=== PATIENT | female | born 1960 | race Caucasian/White ===

== ENCOUNTER → 2017-12-27 | Outpatient (CLI) | payer MEDICAID ==
--- NOTE | 2017-12-27 16:22 | XR ---
EXAMINATION TYPE: XR lumbar spine 2 or 3V DATE OF EXAM: 12/27/2017 COMPARISON: NONE HISTORY: 57 year-old female chronic low back pain after injury in August, sciatica TECHNIQUE: 3 views FINDINGS: Vertebral body heights are preserved. Hypertrophic facet arthropathy lower lumbar spine with grade 1 retrolisthesis at L4-L5. Variable mild disc interspace narrowing. IMPRESSION: No vertebral compression collapse. Hypertrophic facet arthropathy with grade 1 retrolisthesis at L4-L 5.
== END | disposition home or self-care (01) ==
LOC: RADXRMAIN 15:39
PROVIDERS: ATTEND Family Medicine
DX: M43.16 Spondylolisthesis, lumbar region (principal); M46.96 Unspecified inflammatory spondylopathy, lumbar region
CPT/HCPCS: 72100

== ENCOUNTER → 2018-06-15 | Outpatient (CLI) | payer MEDICAID ==
--- NOTE | 2018-06-16 08:26 | US ---
EXAMINATION TYPE: US thyroid st tissue head/neck DATE OF EXAM: 06/15/2018 COMPARISON: NONE CLINICAL HISTORY: E03.9 Hypothyroidism,E07.9 Disorder of thyroid.; on Naturthroid med per patient; co mplains of neck fullness GLAND SIZE: Right Lobe: 5.2 x 1.8 x 1.8 cm Overall Parenchyma: homogenous Left Lobe: 5.4 x 1.8 x 1.4 cm Overall Parenchyma: homogeneous Isthmus Thickness: 0.1 cm NODULES RIGHT: # of nodules measured on right: 0 LEFT: # of nodules measured on left: 0 ISTHMUS: # of nodules measured in the isthmus: 0 Bilateral neck scanned, no evidence of lymphadenopathy. IMPRESSION: Thyroid enlargement without solid or cystic nodule.
== END | disposition home or self-care (01) ==
LOC: RADUSWWP 15:46
PROVIDERS: ATTEND Family Medicine
DX: E04.9 Nontoxic goiter, unspecified (principal); E03.9 Hypothyroidism, unspecified
CPT/HCPCS: 76536

== ENCOUNTER → 2018-09-19 | Outpatient (CLI) | payer MEDICAID ==
--- NOTE | 2018-09-19 22:54 | MR ---
EXAMINATION TYPE: MR lumbar spine wo con DATE OF EXAM: 09/19/2018 COMPARISON: Lumbar spine x-ray December 27, 2017. HISTORY: RT side low back pain into pelvis TECHNIQUE: Multiplanar, multisequence imaging of the lumbar spine is performed without IV contrast. FINDINGS: Sagittal images of the lumbar spine show vertebral body height to appear satisfactory. Ther e is slight grade 1 retrolisthesis of L3 on L4 and L4 on L5. Multilevel disc desiccation is present. There is moderate to advanced disc space narrowing L4-L5 level. No large posterior disc herniations a re seen on sagittal images. The conus medullaris is normal in position and signal ending mid L1 level . The bone marrow signal intensity is within normal limits. Mild multilevel anterior spurring is seen . Axial images and the T12-L1 level shows mild to moderate broad-based posterior disc protrusion mildly effacing the anterior thecal sac, bilateral neural foramina are patent. Axial images at L1-L2 and L2-L3 levels are felt within normal limits. Axial images at the L3-L4 level mild facet degenerative changes bilaterally with [id number] bro ad disc bulge mildly effacing anterior thecal sac, bilateral neural foramina are patent. Axial images at the L4-L5 level shows [id number] facet degenerative changes bilaterally. Spondy lolisthesis is seen. Spinal canal is preserved. There is asymmetric mild to moderate right-sided neur al foraminal narrowing due to spur disc complex. Left-sided neural foramina is mildly narrowed. Axial images at the L5-S1 level mild facet degenerative changes bilaterally. There is moderate broad disc bulge with spinal canal is preserved. There is asymmetric moderate left-sided neural foraminal n arrowing. Right-sided neural foramina shows mild narrowing but some encroachment along the anterior-i nferior right L5 nerve sagittal image 14 less prominent on axial images. No suspicious retroperitoneal findings are identified. IMPRESSION: Multilevel degenerative changes mid to lower lumbar spine as detailed above
== END ==
LOC: RADMRIMAIN 19:42
PROVIDERS: ATTEND Physician Assistant
DX: M48.061 Spinal stenosis, lumbar region without neurogenic claudication (principal); M99.73 Connective tissue and disc stenosis of intervertebral foramina of lumbar region; M43.16 Spondylolisthesis, lumbar region; M51.25 Other intervertebral disc displacement, thoracolumbar region; M47.817 Spondylosis without myelopathy or radiculopathy, lumbosacral region
CPT/HCPCS: 72148

== ENCOUNTER → 2018-12-01 | Outpatient (CLI) | payer MEDICAID ==
--- NOTE | 2018-12-02 16:35 | CT ---
EXAMINATION TYPE: CT abdomen pelvis w con DATE OF EXAM: 12/01/2018 COMPARISON: None INDICATION: Lower quadrant pain DLP: 10/25/2003 mGycm, Automated exposure control for dose reduction was used. CONTRAST: 100 mL of Isovue 300. Study performed with Oral Contrast TECHNIQUE: Axial images were obtained from above the diaphragm to the pubic rami in the axial plane a t 5 mm thick sections. Reconstructed images are reviewed on the computer in the coronal plane. FINDINGS: Limited CT sections are obtained the lung bases. The lung bases are clear. CT ABDOMEN: Liver: Normal Spleen: Normal Pancreas: Normal Adrenal glands: The adrenal glands are normal. Gallbladder: Normal Kidneys: No masses are evident. No hydronephrosis is present. No cysts are present. Delayed images were obtained through the kidneys, which remain unremarkable. Aorta: Minimal Vascular calcification is within the aorta. Inferior vena cava: Normal. CT PELVIS: Loops of bowel within the abdomen and pelvis are normal. There are loops of bowel which are incom pletely distended or lack oral contrast limiting their evaluation. Appendix: Normal as visualized. Urinary bladder: Normal. Genitourinary structures: Uterus appears normal. Adnexal regions are clear. Osseous structures: No suspicious lytic or sclerotic lesions. Degenerative changes are within the lum bar spine. Degenerative disc changes with loss of disc height are noted. IMPRESSIONS: 1. No suspicious acute changes. 2. Normal appendix
== END | disposition home or self-care (01) ==
LOC: RADCTMAIN 15:40
PROVIDERS: ATTEND Family Medicine
DX: R10.31 Right lower quadrant pain (principal)
CPT/HCPCS: 74177; Q9967

== ENCOUNTER → 2019-01-24 | Outpatient (CLI) | payer MEDICAID ==
--- NOTE | 2019-01-25 13:23 | MM ---
Reason for exam: screening (asymptomatic). Last mammogram was performed 2 years and 4 months ago. History: Patient is postmenopausal, history of other cancer, and had first child at age 32. Benign excisional biopsy of the left breast. Taking estrogen for 6 years. Taking progesterone for 10 years. Took unspecified hormones for 1 year beginning at age 45. Physical Findings: A clinical breast exam by your physician is recommended on an annual basis and results should be correlated with mammographic findings. MG 3D Screening Mammo W/Cad Bilateral CC and MLO view(s) were taken. Prior study comparison: September 29, 2016, left breast MG 3d diag mammo w/cad LT. March 09, 2016, bilateral MG 3d screening mammo w/cad. The breast tissue is heterogeneously dense. This may lower the sensitivity of mammography. Finding #1: Stable architectural distortion in the posterior position of the left breast consistent with known excision. Finding #2: There are typically benign round calcifications in the left breast. There is no discrete abnormality. ASSESSMENT: Benign, BI-RAD 2 RECOMMENDATION: Routine screening mammogram of both breasts in 1 year.
== END | disposition home or self-care (01) ==
LOC: RADMAMWWP 15:45
PROVIDERS: ATTEND Obstetrics & Gynecology
DX: Z12.31 Encounter for screening mammogram for malignant neoplasm of breast (principal)
CPT/HCPCS: 77063; 77067

== ENCOUNTER 2019-06-24 10:09 | Emergency (ER) | payer MEDICAID ==
[2019-06-24 10:21] VITALS: RESP 18; TEMP 98.5
[2019-06-24] MEDS ORDERED: KETOROLAC 30 MG/ML 1 ML VIAL IVP STA (10:40)
[2019-06-24] MEDS ORDERED: ONDANSETRON 4 MG/2 ML VIAL IVP STA (10:40)
[2019-06-24] MEDS ORDERED: SODIUM CHLORIDE 0.9% 1,000 ML IV STA (10:40)
--- NOTE | 2019-06-24 10:47 | ED ---
Abdominal Pain HPI - General Chief Complaint: Abdominal Pain Stated Complaint: back pain/nausea Time Seen by Provider: 06/24/19 10:22 Source: patient Mode of arrival: ambulatory Limitations: no limitations - History of Present Illness Initial Comments: Patient is a 58-year-old female presenting to the emergency Department with complaints of right flank pain 2 days. Patient states her pain started suddenly and she first thought she had pulled a muscle. Patient is very active and does yoga and spinning. Patient states the pain has been fairly consistent since the onset. Patient states yesterday the pain increased and she was vomiting. Patient did try some heat on the area and was able to sleep through the night but woke up this morning stating the pain was still there and still very intense. Patient denies history of kidney stones. Patient denies fever, chills, urinary complaints at this time. Patient denies chest pain, shortness of breath. Patient denies any other complaints at this time. Upon arrival to ER, vital signs stable, afebrile. - Related Data Previous Rx's Medication Instructions Recorded Cyclobenzaprine [Flexeril] 5 mg PO BID #10 tablet 06/24/19 Allergies Allergy/AdvReac Type Severity Reaction Status Date / Time No Known Allergies Allergy Verified 06/24/19 10:17 Review of Systems ROS Statement: Those systems with pertinent positive or pertinent negative responses have been documented in the HPI. ROS Other: All systems not noted in ROS Statement are negative. Past Medical History Additional Past Medical History / Comment(s): endometriosis History of Any Multi-Drug Resistant Organisms: None Reported Additional Past Surgical History / Comment(s): laparatomy Past Psychological History: No Psychological Hx Reported Smoking Status: Never smoker Past Alcohol Use History: Occasional Past Drug Use History: None Reported General Exam - General Exam Comments Initial Comments: GENERAL: Well-appearing, well-nourished and in no acute distress. HEAD: Atraumatic, normocephalic. EYES: Pupils equal round and reactive to light, extraocular movements intact, sclera anicteric, conjunctiva are normal. ENT: TMs normal, nares patent, oropharynx clear without exudates. Moist mucous m embranes. NECK: Normal range of motion, supple without lymphadenopathy or JVD. LUNGS: Breath sounds clear to auscultation bilaterally and equal. No wheezes rales or rhonchi. HEART: Regular rate and rhythm without murmurs, rubs or gallops. ABDOMEN: Tender to palpation on the right side, right flank area. Mild tenderness to palpation in the suprapubic and right lower quadrant. Soft, normoactive bowel sounds. No guarding, no rebound. No masses appreciated. : Deferred EXTREMITIES: Normal range of motion, no pitting or edema. No clubbing or cyanosis. NEUROLOGICAL: Cranial nerves II through XII grossly intact. Normal speech, normal gait. PSYCH: Normal mood, normal affect. SKIN: Warm, Dry, normal turgor, no rashes or lesions noted. Limitations: no limitations Course Vital Signs 06/24/19 06/24/19 10:14 13:54 Temperature 98.5 F Pulse Rate 79 65 Respiratory 18 18 Rate Blood Pressure 172/72 130/76 O2 Sat by Pulse 96 98 Oximetry Medical Decision Making - Medical Decision Making Patient is a 58-year-old female with complaints of right flank and right lower quadrant pain 2 days. Patient had associated vomiting yesterday. Patient denies fever, chills. She denies history of kidney stones. Vital signs stable upon arrival. Patient's exam reveals right side and right lower quadrant pain. CBC, CMP, lipase, and amylase, UA are all within normal limits. CT of the abdomen was obtained and shows no acute intra-abdominal process. No kidney stone present. There was a oval radiodensity in the terminal ileum likely a ca lcium deposit. Follow-up with PCP for another KUB x-ray is recommended. Patient understood these findings. This is likely muscle skeletal in nature. Patient will use heat and gentle stretching. Patient is stable for discharge at this time. Return parameters were discussed with the patient she verbalized understanding. Case discussed with Dr. Meyers. - Lab Data Result diagrams: 06/24/19 11:42 06/24/19 11:42 Lab Results 06/24/19 06/24/19 06/24/19 Range/Units 11:31 11:42 11:42 WBC 4.3 (3.8-10.6) k/uL RBC 4.58 (3.80-5.40) m/uL Hgb 14.2 (11.4-16.0) gm/dL Hct 41.7 (34.0-46.0) % MCV 91.0 (80.0-100.0) fL MCH 31.1 (25.0-35.0) pg MCHC 34.1 (31.0-37.0) g/dL RDW 15.0 (11.5-15.5) % Plt Count 194 (150-450) k/uL Neutrophils % 48 % Lymphocytes % 35 % Monocytes % 9 % Eosinophils % 3 % Basophils % 1 % Neutrophils # 2.1 (1.3-7.7) k/uL Lymphocytes # 1.5 (1.0-4.8) k/uL Monocytes # 0.4 (0-1.0) k/uL Eosinophils # 0.1 (0-0.7) k/uL Basophils # 0.0 (0-0.2) k/uL Sodium 141 (137-145) mmol/L Potassium 4.4 (3.5-5.1) mmol/L Chloride 107 (98-107) mmol/L Carbon Dioxide 26 (22-30) mmol/L Anion Gap 8 mmol/L BUN 12 (7-17) mg/dL Creatinine 0.63 (0.52-1.04) mg/dL Est GFR (CKD-EPI)AfAm >90 (>60 ml/min/1.73 sqM) Est GFR (CKD-EPI)NonAf >90 (>60 ml/min/1.73 sqM) Glucose 109 H (74-99) mg/dL Calcium 9.4 (8.4-10.2) mg/dL Total Bilirubin 0.7 (0.2-1.3) mg/dL AST 31 (14-36) U/L ALT 29 (9-52) U/L Alkaline Phosphatase 57 (38-126) U/L Total Protein 7.3 (6.3-8.2) g/dL Albumin 4.4 (3.5-5.0) g/dL Amylase 51 (30-110) U/L Lipase 104 (23-300) U/L Urine Color Colorless Urine Appearance Clear (Clear) Urine pH 7.5 (5.0-8.0) Ur Specific [place] 1.003 (1.001-1.035) Urine Protein Negative (Negative) Urine Glucose (UA) Negative (Negative) Urine Ketones Negative (Negative) Urine Blood Negative (Negative) Urine Nitrite Negative (Negative) Urine Bilirubin Negative (Negative) Urine Urobilinogen <2.0 (<2.0) mg/dL Ur Leukocyte Esterase Negative (Negative) Disposition Clinical Impression: Abdominal pain, Vomiting, Right flank pain Disposition: HOME SELF-CARE Condition: Stable Instructions (If sedation given, give patient instructions): Flank Pain (ED) Additional Instructions: Please return to the Emergency Department if symptoms worsen or any other concerns. Use heat and gentle stretching to the area. Continue with NSAIDs for pain relief and trial of muscle relaxer. Follow-up with Dr. Mccormick next week. Prescriptions: Cyclobenzaprine [Flexeril] 5 mg PO BID #10 tablet Is patient prescribed a controlled substance at d/c from ED?: No Referrals: Raymundo Mccormick MD [Primary Care Provider] - 1-2 days
[2019-06-24 11:45] LABS: Appearance,Urine Clear (Clear); Bilirubin,Urine Negative (Negative); Blood,Urine Negative (Negative); Color,Urine Colorless; Glucose,Urine (UA) Negative (Negative); Ketones,Urine Negative (Negative); Leukocyte Esterase,Urine Negative (Negative); Nitrite,Urine Negative (Negative); PH, Urine 7.5 (5.0-8.0); Protein,Urine Negative (Negative); Specific Gravity,Urine 1.003 (1.001-1.035); Urobilinogen,Urine <2.0 mg/dL (<2.0)
[2019-06-24 12:03] LABS: Basophils % (A) 1 %; Eosinophils # (A) 0.1 k/uL (0-0.7); Eosinophils % (A) 3 %; HCT 41.7 % (34.0-46.0); HGB 14.2 gm/dL (11.4-16.0); Lymphocytes # (A) 1.5 k/uL (1.0-4.8); Lymphocytes % (A) 35 %; MCH 31.1 pg (25.0-35.0); MCHC 34.1 g/dL (31.0-37.0); Mean Platelet Volume 7.1; Monocytes # (A) 0.4 k/uL (0-1.0); Monocytes % (A) 9 %; Neutrophils # (A) 2.1 k/uL (1.3-7.7); Neutrophils % (A) 48 %; Platelet Count 194 k/uL (150-450); RBC 4.58 m/uL (3.80-5.40); WBC 4.3 k/uL (3.8-10.6)
[2019-06-24 12:11] LABS: ALT 29 U/L (9-52); AST 31 U/L (14-36); African American GFR (CKD) >90 (>60 ml/min/1.73 sqM); Albumin 4.4 g/dL (3.5-5.0); Alkaline Phosphatase 57 U/L (38-126); Amylase 51 U/L (30-110); Anion Gap 8 mmol/L; Blood Urea Nitrogen 12 mg/dL (7-17); Calcium 9.4 mg/dL (8.4-10.2); Carbon Dioxide 26 mmol/L (22-30); Chloride 107 mmol/L (98-107); Glucose 109 mg/dL (74-99); Potassium 4.4 mmol/L (3.5-5.1); Sodium 141 mmol/L (137-145); Total Bilirubin 0.7 mg/dL (0.2-1.3); Total Protein 7.3 g/dL (6.3-8.2)
--- NOTE | 2019-06-24 12:31 | CT ---
EXAMINATION TYPE: CT abdomen pelvis wo con DATE OF EXAM: 06/24/2019 COMPARISON: CT abdomen/pelvis 12/01/2018 HISTORY: Right flank pain CT DLP: 687.9 mGycm Automated exposure control for dose reduction was used. TECHNIQUE: Helical acquisition of images was performed from the lung bases through the pelvis. No in travenous contrast was given. FINDINGS: Visceral evaluation is limited due to noncontrast technique. The liver, spleen, adrenal glands, and p ancreas are morphologically normal. No calcified gallstones. No renal or ureteral calculi. No hydronephrosis. Distended urinary bladder has a normal noncontrasted appearance. Uterus is present. No dilated bowel or free air. Trace amount of pelvic free fluid, not an unusual finding. Morphologica lly normal appendix. Ovoid radiodensity in the terminal ileum likely from ingested material. No suspicious adenopathy. Few aortic atherosclerotic plaques without aneurysm. Lower lumbar spine disc degeneration, greatest degree at L4-L5 characterized by disc height loss, vac uum disc phenomenon, and discogenic endplate change. Nonaggressive left iliac and right iliac sclerot ic bone lesions are stable. IMPRESSION: NO ACUTE INTRA-ABDOMINAL PROCESS. NO RENAL CALCULI OR HYDRONEPHROSIS.
[2019-06-24 13:55] VITALS: BP 130/76; PULSE 65
== END 2019-06-24 13:56 | disposition home or self-care (01) ==
LOC: EC 10:09
DX: R10.31 Right lower quadrant pain (principal); R11.10 Vomiting, unspecified
CPT/HCPCS: 36415; 80053; 82150; 83690; 85025; 81003; 74176; 99284; 96374; 96375; 96361 ×2; J2405; J1885

== ENCOUNTER → 2020-03-28 | Outpatient (CLI) | payer MEDICAID | END | disposition home or self-care (01) | LOC: LABWHC1 16:23 | PROVIDERS: ATTEND Surgery | DX: Z11.59 Encounter for screening for other viral diseases (principal) ==

== ENCOUNTER → 2020-03-31 | Outpatient (CLI) | payer MEDICAID ==
--- NOTE | 2020-04-01 13:06 | MR ---
EXAMINATION TYPE: MR shoulder RT wo con DATE OF EXAM: 03/31/2020 COMPARISON: None HISTORY: Chronic Pain in Right shoulder when laying on it or rotating it. No Know injury or Loss of R OM. TECHNIQUE: Multiplanar, multisequence imaging of the right shoulder is performed without contrast. FINDINGS: There is hypertrophic arthropathy of the AC joint with evidence of impingement. Mass effect on the supraspinatus tendon and muscle noted. Intrasubstance signal is seen within the distal margin of the infraspinatus tendon and supraspinatus tendons compatible with tendinosis with no through thickness tear or retraction. Trace amount of flui d in the subacromial bursa. Subscapularis tendon intact. Biceps tendon and tendon is intact. Within the intracapsular portion of the biceps courses there appe ars to be thickening and increased signal compatible with tendinosis. Biceps anchor intact. Bony labrum grossly intact for nonarthrogram technique. Glenohumeral ligaments intact. IMPRESSION: 1. Impingement with tendinosis of the supraspinatus and infraspinatus tendons but no evidence of thro ugh thickness tear or retraction. 2. bicipital tendinosis.
== END | disposition home or self-care (01) ==
LOC: RADMRIMAIN 15:32
PROVIDERS: ATTEND Orthopaedic Surgery
DX: M67.813 Other specified disorders of tendon, right shoulder (principal); M75.21 Bicipital tendinitis, right shoulder

== ENCOUNTER 2020-04-01 09:02 | Day surgery (SDC) | payer MEDICAID ==
[2020-03-28 14:36] VITALS: BMI 24.4
[~2020-04-01 09:02] MED LIST: LACTATED RINGERS 1,000 ML IV SCH; LIDOCAINE 1% (10MG/ML) FOR IV START INTRADERMA PRN
[2020-04-01 09:29] VITALS: RESP 16; TEMP 97.1
[2020-04-01] MEDS ORDERED: ONDANSETRON 4 MG/2 ML VIAL IVP ONE (09:35)
[2020-04-01] MEDS ORDERED: PROPOFOL 10 MG/ML 20 ML VIAL IV ONE (10:31)
[2020-04-01] MEDS ORDERED: LIDOCAINE 1% INJ 10MG/ML (20 ML MDV) ONE (10:31)
--- NOTE | 2020-04-01 10:43 | P.GSHP ---
History of Present Illness H&P Date: 04/01/20 Chief Complaint: Colon cancer screening Patient here today for colonoscopy. Last colonoscopy over 10 years ago. Patient has had some right sided abdominal pain. No change in bowel habits. No rectal bleeding or melena. No family history of colon cancer. Past Medical History Past Medical History: Thyroid Disorder Additional Past Medical History / Comment(s): endometriosis. LOWER RT ABD. PAIN History of Any Multi-Drug Resistant Organisms: None Reported Additional Past Surgical History / Comment(s): laparatomy. COLONOSCOPY. SINUS SX. LT CATARACT REMOVED Past Anesthesia/Blood Transfusion Reactions: Motion Sickness, Postoperative Nausea & Vomiting (PONV) Smoking Status: Never smoker - Past Family History Mother Family Medical History: No Reported History Medications and Allergies Home Medications Medication Instructions Recorded Confirmed Type Cetirizine HCl [Zyrtec] 10 mg PO DAILY 03/28/20 03/28/20 History Cholecalciferol (Vitamin D3) 125 mcg PO DAILY 03/28/20 03/28/20 History [Vitamin D3] Curcumin 200 mg PO BID 03/28/20 History Niacin (Inositol Niacinate) 500 mg PO BID 03/28/20 03/28/20 History [Niacin 500 mg Capsule] [place]-3 Fatty Acids/Fish Oil [Fish 1 each PO DAILY 03/28/20 03/28/20 History Oil 1,000 mg Softgel] Prasterone (Dhea)/Calcium Carb 1 each PO DAILY 03/28/20 03/28/20 History [Dhea 10 mg Tablet] Pregnenolone 50 mg PO DAILY 03/28/20 History Progesterone, Micronized 100 mg PO DAILY 03/28/20 03/28/20 History [Progesterone] Testosterone Cypionate 0.25 ml IM Q30D 03/28/20 03/28/20 History [Depo-Testosterone] Thyroid,Pork [Nature-Throid] 65 mg PO DAILY 03/28/20 03/28/20 History Ubidecarenone [Co Q-10] 400 mg PO DAILY 03/28/20 03/28/20 History Allergies Allergy/AdvReac Type Severity Reaction Status Date / Time No Known Allergies Allergy Verified 04/01/20 09:22 Surgical - Exam Vital Signs Temp Pulse Resp BP Pulse Ox 97.1 F L 93 16 164/77 95 04/01/20 09:27 04/01/20 09:27 04/01/20 09:27 04/01/20 09:27 04/01/20 09:27 Physical exam: General: Well-developed, well-nourished HEENT: Normocephalic, sclerae nonicteric Abdomen: Nontender, nondistended Extremities: No edema Neuro: Alert and oriented Assessment and Plan (1) Colon cancer screening Narrative/Plan: Will proceed with colonoscopy at this time. Current Visit: Yes Status: Acute Code(s): Z12.11 - ENCOUNTER FOR SCREENING FOR MALIGNANT NEOPLASM OF COLON SNOMED Code(s): 491985151
--- NOTE | 2020-04-01 11:09 | P.PCN ---
Date of Procedure: 04/01/20 Procedure(s) Performed: PREOPERATIVE DIAGNOSIS: Colon cancer screening POSTOPERATIVE DIAGNOSIS: Tortuous colon otherwise normal PROCEDURE: Colonoscopy ANESTHESIA: MAC SURGEON: Igor Segundo M.D. SPECIMENS: None ENDOSCOPIC PROCEDURE: The patient was placed on the endoscopy table in the left decubitus position. The Olympus colonoscope was inserted into the anus and passed under direct visualization to the base of the cecum. The appendiceal orifice was visualized. The terminal ileum was inspected. 5-10 cm was visualized. No abnormalities or foreign bodies were seen. The valve itself appeared normal as well. From that point the scope was slowly withdrawn inspecting all surfaces carefully. There were no neoplastic inflammatory or polypoid lesions throughout the cecum, ascending, transverse, descending, sigmoid and rectum. There was no visible diverticulosis noted. Digital rectal examination was normal. The patient was taken to the recovery room in stable condition per anesthesia guidelines. RECOMMENDATIONS: Increase fiber. Follow-up colonoscopy in 10 years.
[2020-04-01 11:31] VITALS: BP 143/73; PULSE 65
== END 2020-04-01 11:59 | disposition home or self-care (01) ==
LOC: ORWHC2ENDO 09:02
PROVIDERS: ATTEND Surgery
DX: Z12.11 Encounter for screening for malignant neoplasm of colon (principal); Q43.8 Other specified congenital malformations of intestine; E07.9 Disorder of thyroid, unspecified; R10.31 Right lower quadrant pain; Z98.42 Cataract extraction status, left eye; Z98.890 Other specified postprocedural states; Z79.890 Hormone replacement therapy; Z79.899 Other long term (current) drug therapy
CPT/HCPCS: J2405; J2001; J2704; G0121

== ENCOUNTER → 2020-04-15 | Outpatient (CLI) | payer MEDICAID ==
--- NOTE | 2020-04-15 08:26 | US ---
EXAMINATION TYPE: US gallbladder DATE OF EXAM: 04/15/2020 COMPARISON: CT abdomen and pelvis 2018 CLINICAL HISTORY: R10.31 RLQ PAIN. RLQ pain EXAM MEASUREMENTS: Liver Length: 16.3 cm Gallbladder Wall: 0.3 cm CBD: 0.4 cm Right Kidney: 10.9 x 4.1 x 4.5 cm Pancreas: Tail obscured by overlying bowel gas Liver: appears wnl Gallbladder: no evidence of stones Evidence for sonographic Pugh's sign: no CBD: appears wnl Right Kidney: no evidence of hydronephrosis Visualized pancreas and liver are within normal limits. IVC seen near hepatic dome. Gallbladder withi n normal limits. Right kidney shows no hydronephrosis. IMPRESSION: No shadowing mobile gallstones or ultrasound evidence for acute cholecystitis.
== END | disposition home or self-care (01) ==
LOC: RADUSWWP 07:39
PROVIDERS: ATTEND Surgery
DX: R10.31 Right lower quadrant pain (principal)
CPT/HCPCS: 76705

== ENCOUNTER → 2020-05-13 | Outpatient (CLI) | payer MEDICAID | END | disposition home or self-care (01) | LOC: LABWHC1 12:11 | PROVIDERS: ATTEND Pediatrics Pediatric Infectious Diseases | DX: Z11.59 Encounter for screening for other viral diseases (principal) | CPT/HCPCS: U0003; C9803 ==

== ENCOUNTER → 2020-08-12 | Outpatient (CLI) | payer MEDICAID ==
--- NOTE | 2020-08-12 16:00 | BD ---
EXAMINATION TYPE: Axial Bone Density DATE OF EXAM: 08/12/2020 COMPARISON: 03.09.2016 CLINICAL HISTORY: 60 YR OLD FEMALE....ICD-0 CODE: Z12.31 SCREENING, Z778.0 POST MENOPAUSAL Height: 70 Weight: 177 FRAX RISK QUESTIONS: NOTHING TO ADD HERE RISK FACTORS HISTORY OF: Family History of Osteoporosis: YES, MOTHER, WITH HIP AND BACK FRACTURED Active: YES Postmenopausal woman: YES AT AGE 49 Take estrogen and/or progesterone medications: JUST STOPPED 2 MOS AGO, ON THEM FOR 10 YRS Hyperparathyroidism: NO Adrenal Insufficiency: NO MEDICATIONS: Thyroid Medications: NATURE THYROID FOR ABOUT 5 YRS Additional Medications: VIT D Additional History: NOTHING ADDITIONAL TO ADD HERE EXAM MEASUREMENTS: Bone mineral densitometry was performed using the [employer] System. Bone mineral density as measured about the Lumbar spine is: ----- L1-L4(G/cm2): 1.320 T Score Values are as follows: ----- L1: 0.5 ----- L2: 0.6 ----- L3: 1.3 ----- L4: 2.0 ----- L1-L4: 1.2 Bone mineral density has: Decreased -2.6% since study of: 03.09.2016 Bone mineral density about the R hip (g/cm2): 0.964 Bone mineral density about the L hip (g/cm2): 0.993 T Score values are as follows: -----R Neck: -0.8 -----L Neck: -0.9 -----R Total: -0.3 -----L Total: -0.1 Bone mineral density has: Decreased -1.8% since study of: 03.09.2016 FRAX%s: THERE IS A 14.5% CHANCE FOR A MAJOR OSTEOPOROTIC FX AND A 0.4% FOR HIP.....PROBABILITY FOR FX IN 10 YRS TIME IMPRESSION: Normal (Values between +1 and -1 indicate normal bone mass). Consider repeating this study in 5 year s or sooner if there is some new clinical indication. NOTE: T-SCORE=SD OF THE YOUNG ADULT MEAN.
--- NOTE | 2020-08-18 10:09 | MM ---
Reason for exam: screening (asymptomatic). Last mammogram was performed 1 year and 7 months ago. History: Patient is postmenopausal, history of other cancer, and had first child at age 32. Benign excisional biopsy of the left breast. Taking estrogen for 6 years. Taking progesterone for 10 years. Took unspecified hormones for 2 years. Physical Findings: A clinical breast exam by your physician is recommended on an annual basis and results should be correlated with mammographic findings. MG 3D Screening Mammo W/Cad Bilateral CC, MLO, and XCCL view(s) were taken. Prior study comparison: January 24, 2019, bilateral MG 3d screening mammo w/cad. September 29, 2016, left breast MG 3d diag mammo w/cad LT. The breast tissue is heterogeneously dense. This may lower the sensitivity of mammography. Finding #1: Architectural distortion in the upper outer quadrant, posterior position of the left breast consistent with known excisonal changes. Finding #2: There are typically benign round calcifications in the left breast. There is no discrete abnormality. ASSESSMENT: Benign, BI-RAD 2 RECOMMENDATION: Routine screening mammogram of both breasts in 1 year.
== END | disposition home or self-care (01) ==
LOC: RADMAMWWP 10:21
PROVIDERS: ATTEND Family Medicine
DX: Z12.31 Encounter for screening mammogram for malignant neoplasm of breast (principal); Z78.0 Asymptomatic menopausal state; Z98.82 Breast implant status
CPT/HCPCS: 77063; 77067; 77080

== ENCOUNTER → 2020-09-01 | Outpatient (CLI) | payer MEDICAID ==
[2020-09-01 10:16] LABS: Basophils % (A) 1 %; Eosinophils # (A) 0.1 k/uL (0-0.7); Eosinophils % (A) 1 %; HCT 42.1 % (34.0-46.0); HGB 14.5 gm/dL (11.4-16.0); Lymphocytes # (A) 1.9 k/uL (1.0-4.8); Lymphocytes % (A) 43 %; MCH 31.8 pg (25.0-35.0); MCHC 34.5 g/dL (31.0-37.0); MCV 92.1 fL (80.0-100.0); Mean Platelet Volume 6.9; Monocytes # (A) 0.4 k/uL (0-1.0); Monocytes % (A) 8 %; Neutrophils # (A) 1.9 k/uL (1.3-7.7); Neutrophils % (A) 45 %; Platelet Count 209 k/uL (150-450); RBC 4.57 m/uL (3.80-5.40); RDW 12.3 % (11.5-15.5); WBC 4.3 k/uL (3.8-10.6)
[2020-09-01 10:30] LABS: Potassium 4.6 mmol/L (3.5-5.1)
== END | disposition home or self-care (01) ==
LOC: LABPAT 08:26 → EDSTATUS 09:03
PROVIDERS: ATTEND Orthopaedic Surgery
DX: M75.41 Impingement syndrome of right shoulder (principal)
CPT/HCPCS: 80051; 85025; 93005

== ENCOUNTER 2020-09-04 05:49 | Day surgery (SDC) | payer MEDICAID ==
[2020-09-02 11:30] VITALS: BMI 24.4
--- NOTE | 2020-09-03 14:17 | HP ---
HISTORY AND PHYSICAL DATE OF SURGERY: 09/04/2020 Valerie Quinonez is a 60-year-old patient seen with progressive right shoulder pain. We discussed treatment options with her. She elected to proceed with arthroscopy. Consent was obtained. PAST MEDICAL HISTORY: Hypothyroidism. PAST SURGICAL HISTORY: Cataract surgery, sinus surgery, laparoscopy. DAILY MEDICATIONS: Vitamins. ALLERGIES: None. SOCIAL HISTORY: She denies tobacco use. PHYSICAL EVALUATION OF THE RIGHT SHOULDER: Flexion was 70, abduction was 60, external rotation is 50 with weakness, tenderness along the anterior lateral acromion rotator cuff insertion site. Impingement positive at 100. Distal neurovascular exam is intact. RADIOGRAPHS: Right shoulder type 2 anterior acromion acromioclavicular osteoarthritis, changes of the greater tuberosity. An MRI of her shoulder revealed impingement and tendinosis. IMPRESSION: 1. Right shoulder impingement with rotator cuff tendinosis. 2. Right shoulder acromioclavicular joint osteoarthritis. 3. Right shoulder bicipital tendinitis. PLAN: Right shoulder arthroscopy with subacromial decompression, possible arthroscopic rotator cuff repair probable, Jacoby procedure and debridement. MMODL / IJN: [id number] /
[~2020-09-04 05:49] MED LIST changes: +DEXAMETHASONE SOD PHOSPHATE 4 MG/ML 1 ML VIAL IV ONE; +HYDROmorphone 0.5 MG/0.5 ML SYRINGE IVP PRN; -LIDOCAINE 1% (10MG/ML) FOR IV START INTRADERMA PRN; +MIDAZOLAM 2 MG/2 ML VIAL IV PRN; +ONDANSETRON 4 MG/2 ML VIAL IVP ONE
[2020-09-04] MEDS ORDERED: LIDOCAINE 1% (10MG/ML) FOR IV START INTRADERMA ONE (06:30)
[2020-09-04] MEDS ORDERED: SCOPOLAMINE 1.5MG/72HR PATCH TRANSDERM ONE (06:40)
[2020-09-04] MEDS ORDERED: fentaNYL (PF) 50 MCG/ML 2 ML AMP IV ONE (06:59)
[2020-09-04 07:17] VITALS: RESP 16
--- NOTE | 2020-09-04 07:20 | P.ANPRN ---
Procedure Note - Anesthesia - Nerve Block Performed Right Interscalene Single Time Out Performed: Yes Date of Procedure: 09/04/20 Procedure Start Time: 06:58 Procedure Stop Time: 07:05 Location of Patient: PreOp Indication: Requested by Surgeon Specifically requested for management of pain by DrAgnieszka: Roland Lopez Sedation Type: Sedate with meaningful contact maintained Preparation: Sterile Prep Position: Supine Needle Types: Pajunk Needle Gauge: 20 Ultrasound used to visualize needle placement: Yes Ultrasound used to observe medication spread: Yes Injectate: 0.5% Ropivacaine (see comment for volume) (20 ml plus dexamethasone 4 mg) Blood Aspirated: No Pain Paresthesia on Injection Noted: No Resistance on Injection: Normal Image Stored and Saved: Yes Events: Uneventful and Well Tolerated
[2020-09-04] MEDS ORDERED: DEXAMETHASONE SOD PHOSPHATE 4 MG/ML 1 ML VIAL ONE (07:23)
[2020-09-04] MEDS ORDERED: MIDAZOLAM 2 MG/2 ML VIAL ONE (07:23)
[2020-09-04] MEDS ORDERED: ePHEDrine SULFATE/0.9% NACL/PF 50 MG/5 ML SYRINGE IV ONE (07:23)
[2020-09-04] MEDS ORDERED: fentaNYL (PF) 50 MCG/ML 2 ML AMP ONE (07:23)
[2020-09-04] MEDS ORDERED: ONDANSETRON 4 MG/2 ML VIAL ONE (07:23)
[2020-09-04] MEDS ORDERED: PROPOFOL 10 MG/ML 20 ML VIAL IV ONE (07:23)
[2020-09-04] MEDS ORDERED: SUCCINYLCHOLINE CHLORIDE 100 MG/5 ML SYR IV ONE (07:23)
[2020-09-04] MEDS ORDERED: ROPIVACAINE 5 MG/ML 30 ML VIAL ONE (07:23)
[2020-09-04] MEDS ORDERED: LIDOCAINE 1% INJ 10MG/ML (20 ML MDV) ONE (07:23)
--- NOTE | 2020-09-04 08:57 | P.OP ---
Date of Procedure: 09/04/20 Preoperative Diagnosis: Right shoulder impingement Postoperative Diagnosis: 1. Right shoulder impingement 2. Right shoulder acromioclavicular joint osteoarthritis 3. Right shoulder superficial rotator cuff tear 4. Right shoulder partial long head biceps tendon tear 5. 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 Right shoulder arthroscopic subacromial decompression 2. Right shoulder arthroscopic Jacoby procedure 3. Right shoulder arthroscopic debridement superficial rotator cuff tear 4. Right shoulder arthroscopic biceps tenotomy Anesthesia: GETA, regional (Interscalene block) Surgeon: Roland Lopez Estimated Blood Loss (ml): 7 Pathology: none sent Condition: stable Disposition: PACU Indications for Procedure: 60-year-old patient seen with progressive right shoulder pain. After treatment options were discussed, she elected to proceed with arthroscopy. Operative Findings: See description of procedure Description of Procedure: Patient underwent an interscalene block by department of anesthesia. The patient was then taken to the operative suite. The patient underwent a general anesthetic by the department of anesthesia. The patient was placed into a lateral position and secured. There was appropriate padding of the bony prominence. Right shoulder was then prepped and draped in normal sterile orthopedic fashion. We placed the extremity in 10 pounds of longitudinal traction. A posterior incision was now made for a posterior working portal site. The trocar and cannula were inserted into the glenohumeral joint. Arthroscopy was initiated. Spinal needle was now inserted anteriorly, to ascertain the anterior working portal site. An incision was now made in that area, a trocar was inserted followed by a probe. There were grade 1 chondromalacia changes of the humeral head. There was some partial tearing hyperemia long head biceps tendon. The labrum was probed and found to be stable. I performed an arthroscopic biceps tenotomy. I again probed the labrum and it was found to be stable. Instruments were now removed from glenohumeral joint. Utilizing the posterior working portal site, the trocar and cannula were inserted into the subacromial space. Arthroscopy initiated. I made an incision 2 fingerbreadths lateral to the acromion. I introduced my trocar followed by my ArthroCare ablator. I now began ablating thick subacromial bursal tissue, which exposed the undersurface of the anterior acromion. There was diminished subacromial space. There was a very prominent anterior acromion. A motorized bur was introduced and a subacromial decompression was performed. I also excised some osteophytes off the inferior aspect of the distal clavicle. The AC joint was visualized and noted to be fairly arthritic. The motorized bur was introduced in the anterior portal site and a Jacoby procedure was performed without difficulty, decompressing the AC joint nicely. I turned my attention to the rotator cuff. there was some superficial tearing along the distal supraspinatus area. I debrided that area getting down to stable tendon tissue. I again probed the area and found good stable tendon tissue with no obvious perforation or full-thickness tear. I injected 1 mL Renyte intra-articular. Instruments now removed from the portal sites. All portal sites were approximated with nylon suture. Sterile dressings were applied followed by a sh oulder sling. The patient was awakened, transferred to a bed, and taken to recovery in stable condition.
[2020-09-04 09:13] VITALS: TEMP 96.9
[2020-09-04 09:48] VITALS: BP 148/81; PULSE 71
== END 2020-09-04 10:35 | disposition home or self-care (01) ==
LOC: OR 05:49
PROVIDERS: ATTEND Orthopaedic Surgery
DX: M75.101 Unspecified rotator cuff tear or rupture of right shoulder, not specified as traumatic (principal); M25.811 Other specified joint disorders, right shoulder; M19.011 Primary osteoarthritis, right shoulder; S46.111A Strain of muscle, fascia and tendon of long head of biceps, right arm, initial encounter; M25.711 Osteophyte, right shoulder; M94.211 Chondromalacia, right shoulder; E03.9 Hypothyroidism, unspecified; Z98.49 Cataract extraction status, unspecified eye; Z98.890 Other specified postprocedural states; Z79.899 Other long term (current) drug therapy
CPT/HCPCS: 64415; 76942; 29823; 29824; Q4212; J2250; J1100; J0690; J2405; J2001; J3010; J2795; J0330; J2704

== ENCOUNTER → 2020-11-26 | Outpatient (CLI) | payer MEDICAID ==
[2020-11-26 23:33] LABS: T4, Free (Free Thyroxine) 1.2 ng/dL (0.80-1.80)
== END | disposition home or self-care (01) ==
LOC: LABWHC1 09:39
PROVIDERS: ATTEND Nurse Practitioner Family
DX: E03.9 Hypothyroidism, unspecified (principal); R68.82 Decreased libido
CPT/HCPCS: 36415; 84402; 84403; 84439; 84443

== ENCOUNTER 2021-02-05 14:38 | Emergency (ER) | payer MEDICAID ==
[2021-02-05 14:53] VITALS: BP 174/82; PULSE 70; RESP 18; TEMP 97.9
[2021-02-05] MEDS ORDERED: ASPIRIN 81 MG PO STA (15:18)
--- NOTE | 2021-02-05 15:23 | ED ---
General Adult HPI - General Chief complaint: Chest Pain Stated complaint: sent from for abnormal EKG Time Seen by Provider: 02/05/21 14:53 Source: patient Mode of arrival: ambulatory Limitations: no limitations - History of Present Illness Initial comments: Dictation was produced using [employer] dictation software. please excuse any grammatical, word or spelling errors. This patient was cared for during a federal and state declared state of [facility] secondary to Covid 19 Chief Complaint: 60-year-old female presents emergency department for chest pain History of Present Illness: Patient is a 60-year-old female she has no past me dical history of coronary artery disease. She states that she may have hypercholesterolemia. Last month she is had 2-3 episodes of chest symptoms. She states that the pressure to her substernal area. He states that she ignored it until last night. She had an episode where she had substernal pressure. She did feel some symptoms into her left jaw. Patient denies any associated diaphoresis or nausea. Is not pleuritic or worse with movement or deep inspiration. States that yesterday she did walk and perhaps may be her symptoms were triggered with exertion. She has family history of cardiac disease in her father who is into his 90s. She does not know when he was initially diagnosed. Denies any constitutional symptoms. No fever. She works as a dentures lab technician in our hospital and has tested her troponin which she reports was negative. She did have elevated cholesterol levels. These have not been addressed by any medical professional. She went to her primary care physician's office recently and was told that she has concerning EKG changes. She does currently state that she has some symptoms although mild. The ROS documented in this emergency department record has been reviewed and confirmed by me. Those systems with pertinent positive or negative responses have been documented in the HPI. All other systems are other negative and/or noncontributory. PHYSICAL EXAM: General Impression: Alert and oriented x3, not in acute distress HEENT: Normocephalic atraumatic, extra-ocular movements intact, pupils equal and reactive to light bilaterally, mucous membranes moist. Cardiovascular: Heart regular rate and rhythm Chest: Able to complete full sentences, no retractions, no tachypnea Abdomen: abdomen soft, non-tender, non-distended, no organomegaly Musculoskeletal: Pulses present and equal in all extremities, no peripheral edema Motor: no focal deficits noted Neurological: CN II-XII grossly intact, no focal motor or sensory deficits noted Skin: Intact with no visualized rashes Psych: Normal affect and mood ED course: 60-year-old male presents with clinical presentation consistent with atypical chest pain typical features. She does have some risk factors. Vital signs upon arrival are within acceptable limits. EKG does not show any signs of ischemia or infarction. given an aspirin. Laboratory evaluation obtained. CBC, coag panel, metabolic panel is u nremarkable. There is some degree of dehydration with a BUN to creatinine ratio greater than 20. Chest x-ray is nonacute. Patient reevaluated at bedside at 4:10 PM. She is found to be in stable medical condition. Disposition options were discussed. Patient's heart score is 2. She has a benign EKG, her troponin is negative, she does not have any identifiable risk factors, her story however is mildly suspicious, and should receive another point for age. Patient agreeable for discharge with close outpatient follow-up with primary care physician for outpatient cardiac stress test. She was offered inpatient mission observation for serial troponins and cardiology evaluation. She is told to seek medical attention immediately if she has any worsening symptoms. She lives nearby and has a good social situation. She understands that she still does have some risk given her symptoms represent. EKG interpretation: Ventricular rate 63, normal sinus rhythm, OR interval 136, QRS 94, QTc 384. No OR prolongation, no QTC prolongation, no ST or T-wave changes noted. EKG compared to 09/01/2020 showing no changes. Overall, this EKG is unremarkable - Related Data Home Medications Medication Instructions Recorded Confirmed Cetirizine HCl [Zyrtec] 10 mg PO DAILY 03/28/20 09/02/20 Cholecalciferol (Vitamin D3) 125 mcg PO DAILY 03/28/20 09/02/20 [Vitamin D3] Curcumin 200 mg PO BID 03/28/20 09/02/20 Niacin (Inositol Niacinate) 500 mg PO BID 03/28/20 09/02/20 [Niacin 500 mg Capsule] [place]-3 Fatty Acids/Fish Oil [Fish 1 each PO DAILY 03/28/20 09/02/20 Oil 1,000 mg Softgel] Prasterone (Dhea)/Calcium Carb 1 each PO DAILY 03/28/20 09/02/20 [Dhea 10 mg Tablet] Pregnenolone 50 mg PO DAILY 03/28/20 09/02/20 Thyroid,Pork [Nature-Throid] 65 mg PO DAILY 03/28/20 09/02/20 Ubidecarenone [Co Q-10] 400 mg PO DAILY 03/28/20 09/02/20 Previous Rx's Medication Instructions Recorded Hydrocodone/Acetaminophen [[place] 1 each PO Q6HR PRN #28 tab 09/04/20 5-325] Allergies Allergy/AdvReac Type Severity Reaction Status Date / Time No Known Allergies Allergy Verified 02/05/21 14:50 Review of Systems ROS Statement: Those systems with pertinent positive or pertinent negative responses have been documented in the HPI. ROS Other: All systems not noted in ROS Statement are negative. Past Medical History Past Medical History: Thyroid Disorder Additional Past Medical History / Comment(s): endometriosis History of Any Multi-Drug Resistant Organisms: None Reported Past Surgical History: Orthopedic Surgery Additional Past Surgical History / Comment(s): laparatomy Past Psychological History: No Psychological Hx Reported Smoking Status: Never smoker Past Alcohol Use History: Occasional Past Drug Use History: None Reported General Exam Limitations: no limitations Course Vital Signs 02/05/21 14:50 Temperature 97.9 F Pulse Rate 70 Respiratory 18 Rate Blood Pressure 174/82 O2 Sat by Pulse 99 Oximetry Medical Decision Making - Lab Data Result diagrams: 02/05/21 15:21 02/05/21 15: Lab Results 02/05/21 02/05/21 02/05/21 Range/Units 15:21 15: 15:21 WBC 5.3 (3.8-10.6) k/uL RBC 4.58 (3.80-5.40) m/uL Hgb 14.1 (11.4-16.0) gm/dL Hct 39.8 (34.0-46.0) % MCV 86.8 (80.0-100.0) fL MCH 30.8 (25.0-35.0) pg MCHC 35.5 (31.0-37.0) g/dL RDW 12.3 (11.5-15.5) % Plt Count 211 (150-450) k/uL MPV 6.9 Neutrophils % 44 % Lymphocytes % 44 % Monocytes % 8 % Eosinophils % 2 % Basophils % 1 % Neutrophils # 2.3 (1.3-7.7) k/uL Lymphocytes # 2.3 (1.0-4.8) k/uL Monocytes # 0.4 (0-1.0) k/uL Eosinophils # 0.1 (0-0.7) k/uL Basophils # 0.0 (0-0.2) k/uL PT 10.1 (9.0-12.0) sec INR 0.9 (<1.2) APTT 22.4 (22.0-30.0) sec Sodium 139 (137-145) mmol/L Potassium 4.7 (3.5-5.1) mmol/L Chloride 105 (98-107) mmol/L Carbon Dioxide 25 (22-30) mmol/L Anion Gap 9 mmol/L BUN 18 H (7-17) mg/dL Creatinine 0.62 (0.52-1.04) mg/dL Est GFR (CKD-EPI)AfAm >90 (>60 ml/min/1.73 sqM) Est GFR (CKD-EPI)NonAf >90 (>60 ml/min/1.73 sqM) Glucose 115 H (74-99) mg/dL Calcium 9.8 (8.4-10.2) mg/dL Magnesium 2.2 (1.6-2.3) mg/dL Total Bilirubin 0.5 (0.2-1.3) mg/dL AST 30 (14-36) U/L ALT 22 (4-34) U/L Alkaline Phosphatase 59 (38-126) U/L Troponin I (0.000-0.034) ng/mL Total Protein 7.5 (6.3-8.2) g/dL Albumin 4.7 (3.5-5.0) g/dL Lipase 137 (23-300) U/L 02/05/21 Range/Units 15:21 WBC (3.8-10.6) k/uL RBC (3.80-5.40) m/uL Hgb (11.4-16.0) gm/dL Hct (34.0-46.0) % MCV (80.0-100.0) fL MCH (25.0-35.0) pg MCHC (31.0-37.0) g/dL RDW (11.5-15.5) % Plt Count (150-450) k/uL MPV Neutrophils % % Lymphocytes % % Monocytes % % Eosinophils % % Basophils % % Neutrophils # (1.3-7.7) k/uL Lymphocytes # (1.0-4.8) k/uL Monocytes # (0-1.0) k/uL Eosinophils # (0-0.7) k/uL Basophils # (0-0.2) k/uL PT (9.0-12.0) sec INR (<1.2) APTT (22.0-30.0) sec Sodium (137-145) mmol/L Potassium (3.5-5.1) mmol/L Chloride (98-107) mmol/L Carbon Dioxide (22-30) mmol/L Anion Gap mmol/L BUN (7-17) mg/dL Creatinine (0.52-1.04) mg/dL Est GFR (CKD-EPI)AfAm (>60 ml/min/1.73 sqM) Est GFR (CKD-EPI)NonAf (>60 ml/min/1.73 sqM) Glucose (74-99) mg/dL Calcium (8.4-10.2) mg/dL Magnesium (1.6-2.3) mg/dL Total Bilirubin (0.2-1.3) mg/dL AST (14-36) U/L ALT (4-34) U/L Alkaline Phosphatase (38-126) U/L Troponin I <0.012 (0.000-0.034) ng/mL Total Protein (6.3-8.2) g/dL Albumin (3.5-5.0) g/dL Lipase (23-300) U/L Disposition Clinical Impression: Chest pain Disposition: HOME SELF-CARE Condition: Fair Instructions (If sedation given, give patient instructions): Chest Pain (ED) Is patient prescribed a controlled substance at d/c from ED?: No Referrals: Raymundo Mccormick MD [Primary Care Provider] - 1-2 days Time of Disposition: 16:16
[2021-02-05 15:33] LABS: Basophils % (A) 1 %; Eosinophils # (A) 0.1 k/uL (0-0.7); Eosinophils % (A) 2 %; HCT 39.8 % (34.0-46.0); HGB 14.1 gm/dL (11.4-16.0); Lymphocytes # (A) 2.3 k/uL (1.0-4.8); Lymphocytes % (A) 44 %; MCH 30.8 pg (25.0-35.0); MCHC 35.5 g/dL (31.0-37.0); MCV 86.8 fL (80.0-100.0); Mean Platelet Volume 6.9; Monocytes # (A) 0.4 k/uL (0-1.0); Monocytes % (A) 8 %; Neutrophils # (A) 2.3 k/uL (1.3-7.7); Neutrophils % (A) 44 %; Platelet Count 211 k/uL (150-450); RBC 4.58 m/uL (3.80-5.40); RDW 12.3 % (11.5-15.5); WBC 5.3 k/uL (3.8-10.6)
[2021-02-05 15:40] LABS: ALT 22 U/L (4-34); AST 30 U/L (14-36); African American GFR (CKD) >90 (>60 ml/min/1.73 sqM); Albumin 4.7 g/dL (3.5-5.0); Alkaline Phosphatase 59 U/L (38-126); Anion Gap 9 mmol/L; Blood Urea Nitrogen 18 mg/dL (7-17); Calcium 9.8 mg/dL (8.4-10.2); Carbon Dioxide 25 mmol/L (22-30); Chloride 105 mmol/L (98-107); Glucose 115 mg/dL (74-99); Lipase 137 U/L (23-300); Magnesium 2.2 mg/dL (1.6-2.3); Non-African American GFR(CKD) >90 (>60 ml/min/1.73 sqM); Potassium 4.7 mmol/L (3.5-5.1); Sodium 139 mmol/L (137-145); Total Bilirubin 0.5 mg/dL (0.2-1.3); Total Protein 7.5 g/dL (6.3-8.2)
[2021-02-05 15:42] LABS: INR 0.9 (<1.2); Partial Thromboplastin Time 22.4 sec (22.0-30.0); Prothrombin Time 10.1 sec (9.0-12.0)
--- NOTE | 2021-02-05 15:53 | XR ---
EXAMINATION TYPE: XR chest 2V DATE OF EXAM: 02/05/2021 COMPARISON: 12/28/2012 INDICATION: Chest pain TECHNIQUE: Frontal and lateral views of the chest are obtained. FINDINGS: The heart size is normal. The pulmonary vasculature is normal. The lungs are clear. IMPRESSION: 1. No acute pulmonary process.
== END 2021-02-05 17:10 | disposition home or self-care (01) ==
LOC: EC 14:38
DX: R07.2 Precordial pain (principal); R94.31 Abnormal electrocardiogram [ECG] [EKG]; E78.00 Pure hypercholesterolemia, unspecified
CPT/HCPCS: 36415; 71046; 80053; 83690; 83735; 84484; 85025; 85610; 85730; 93005; 99285

== ENCOUNTER → 2021-02-16 | Outpatient (CLI) | payer MEDICAID ==
--- NOTE | 2021-02-16 13:33 | US ---
EXAMINATION TYPE: US carotid duplex BILAT DATE OF EXAM: 02/16/2021 COMPARISON: NONE CLINICAL HISTORY: R42. Dizziness Giddiness. Dizziness EXAM MEASUREMENTS: RIGHT: Peak Systolic Velocity (PSV) cm/sec ----- Right CCA: 70.3 ----- Right ICA: 85.3 ----- Right ECA: 88.6 ICA/CCA ratio: 1.2 RIGHT: End Diastole cm/sec ----- Right CCA: 17.1 ----- Right ICA: 34.7 ----- Right ECA: 18.2 LEFT: Peak Systolic Velocity (PSV) cm/sec ----- Left CCA: 84.2 ----- Left ICA: 85.3 ----- Left ECA: 104.3 ICA/CCA ratio: 1.0 LEFT: End Diastole cm/sec ----- Left CCA: 27.0 ----- Left ICA: 42.4 ----- Left ECA: 22.8 VERTEBRALS (direction of flow): Right Vertebral: Antegrade Left Vertebral: Antegrade Rhythm: Normal No significant stenosis seen IMPRESSION: No evidence for hemodynamically significant stenosis. Criteria for Assigning % of Stenosis / Diameter reduction (Estimation based on the indirect measurements of the internal carotid artery velocities (ICA PSV). 1. Normal (no stenosis)=ICA PSV < 125 cm/s: ratio < 2.0: ICA EDV<40 cm/s. 2. Less than 50% stenosis=ICA PSV < 125 cm/s: ratio < 2.0: ICA EDV<40 cm/s. 3. 50 to 69% stenosis=ICA PSV of 125 to 230 cm/s: ration 2.0 ? 4.0: ICA EDV 40-100 cm/s. 4. Greater than 70% stenosis to near occlusion= ICA PSV > 230 cm/s: ratio > 4.0: ICA EDV > 100 cm/s. 5. Near occlusion= ICA PSV velocities may be low or undetectable: variable ratio and ICA EDV. 6. Total occlusion=unable to detect flow.
--- NOTE | 2021-02-16 13:52 | ECHOS ---
STRESS ECHOCARDIOGRAM LUMASON: N/A Vial INDICATIONS: Short of breath MEDICATIONS: BASELINE HEART RATE: 64 BASELINE BLOOD PRESSURE: 163/81 MAXIMUM HEART RATE: 138 MAXIMUM BLOOD PRESSURE: 232/155 85% MPHR: 135 100% MPHR: 159 METS: 9.1 MAXIMUM STAGE REACHED: 3 TOTAL EXERCISE TIME: 10:12 CLINICAL INFORMATION: Chest pain. CLINICAL INFORMATION: Baseline rhythm is sinus mechanism, rate 64, normal axis and intervals. Normal electrocardiogram. Baseline blood pressure 163/81 mmHg. Patient exercised on Armando protocol for 7 minutes 32 seconds reaching peak rate 138 beats per minute which is equal to 88% maximum predicted heart rate. Peak blood pressure 261/50 mmHg. Test was terminated secondary to hypertensive response. Electrocardiograph monitoring revealed no evidence of diagnostic ischemic ST deviation. Baseline echocardiogram revealed normal wall thickness and motion. At peak exercise, there was normal wall motion augmentation with no hypokinesis or dyskinesis. CONCLUSION: 1. Average exercise tolerance with hypertensive response to exercise and no evidence of exercise induced ischemia. 2. Normal stress echocardiogram with no evidence of stress-induced ischemia. MMODL / IJN: [id number] /
== END | disposition home or self-care (01) ==
LOC: RADNMMAIN 09:32
PROVIDERS: ATTEND Family Medicine
DX: R07.89 Other chest pain (principal); R42 Dizziness and giddiness
CPT/HCPCS: 93351; 93880

== ENCOUNTER → 2021-06-10 | Outpatient (CLI) | payer MEDICAID ==
[2021-06-10 15:44] LABS: Basophils # (A) 0.02 X 10*3/uL (0.00-0.10); Basophils % (A) 0.5 %; Eosinophils # (A) 0.07 X 10*3/uL (0.04-0.35); Eosinophils % (A) 1.8 %; HGB 14.2 g/dL (12.0-15.0); Lymphocytes # (A) 1.54 X 10*3/uL (0.90-5.00); MCH 31.3 pg (27.0-32.0); MCHC 33.8 g/dL (32.0-37.0); MCV 92.5 fL (80.0-97.0); Mean Platelet Volume 10.1 fL (9.5-12.2); Monocytes # (A) 0.43 X 10*3/uL (0.20-1.00); Monocytes % (A) 10.9 %; Neutrophils # (A) 1.87 X 10*3/uL (1.80-7.70); Neutrophils % (A) 47.3 %; Platelet Count 209 X 10*3/uL (140-440); RBC 4.54 X 10*6/uL (4.10-5.20); RDW 12.6 % (11.5-14.5); WBC 3.95 X 10*3/uL (4.50-10.00)
[2021-06-10 18:24] LABS: African American GFR (CKD) 92.2 (60.0-200.0); Albumin 4.7 g/dL (3.80-4.90); Albumin/Globulin Ratio 2.04 (1.60-3.17); Anion Gap 9.4 mmol/L (4.00-12.00); BUN/Creat Ratio 16.25 Ratio (12.00-20.00); C Reactive Protein, High Sens 0.62 mg/L (0.000-3.000); Calcium 9.8 mg/dL (8.7-10.3); Carbon Dioxide 26.6 mmol/L (21.6-31.8); Globulin 2.3 g/dL (1.6-3.3); Non-African American GFR(CKD) 79.6 (60.0-200.0); Potassium 4.7 mmol/L (3.5-5.5)
[2021-06-10 18:32] LABS: T4, Free (Free Thyroxine) 1.1 ng/dL (0.80-1.80)
[2021-06-11 14:23] LABS: Estrogens Total 101 pg/mL
[2021-06-11 19:10] LABS: Chol/HDL Ratio 2.86
[2021-06-13 00:55] LABS: Albumin, LC/MS/MS 4.4 g/dL (3.6-5.1)
== END | disposition home or self-care (01) ==
LOC: LABWHC1 10:22
PROVIDERS: ATTEND Nurse Practitioner Adult Health
DX: Z00.00 Encounter for general adult medical examination without abnormal findings (principal); E34.8 Other specified endocrine disorders; E78.5 Hyperlipidemia, unspecified; E03.9 Hypothyroidism, unspecified; E55.9 Vitamin D deficiency, unspecified; Z79.890 Hormone replacement therapy; Z87.42 Personal history of other diseases of the female genital tract; Z87.19 Personal history of other diseases of the digestive system
CPT/HCPCS: 36415; 80053; 80061; 82040; 82306; 82672; 84144; 84270; 84403; 84439; 84443; 85025; 86141

== ENCOUNTER → 2021-08-14 | Outpatient (CLI) | payer MEDICAID ==
--- NOTE | 2021-08-14 14:25 | US ---
EXAMINATION TYPE: US pelvis complete transvag DATE OF EXAM: 08/14/2021 COMPARISON: NONE CLINICAL HISTORY: Z87.42 HISTORY OF ENDOMETRIOSIS. Change of hormone medications. TECHNIQUE: Transvaginal (TV) and Transabdominal (TA) . Transabdominal sonographic images of the pel vis were acquired. Transvaginal sonographic images were medically necessary to better assess the fol lowing anatomy: Ovaries Date of LMP: ?? EXAM MEASUREMENTS: Uterus: 5.5x4.3x2.7 cm Endometrial Stripe: No well defined cm Right Ovary: 2.0x1.4x1.4 cm Left Ovary: Not seen 1. Uterus: Anteverted wnl 2. Endometrium: wnl 3. Right Ovary: Obscured by overlying bowel gas 4. Left Ovary: Obscured by overlying bowel gas 5. Bilateral Adnexa: Obscured by overlying bowel gas 6. Posterior cul-de-sac: Free fluid seen IMPRESSION: Small amount of free fluid within the cul-de-sac.
--- NOTE | 2021-08-18 09:22 | MM ---
Reason for exam: screening (asymptomatic). Last mammogram was performed 1 year ago. History: Patient is postmenopausal, has history of other cancer at age 44, and had first child at age 32. Benign excisional biopsy of the left breast. Took estrogen for 6 years. Took progesterone for 10 years. Took unspecified hormones for 2 years. Physical Findings: A clinical breast exam by your physician is recommended on an annual basis and results should be correlated with mammographic findings. MG 3D Screening Mammo W/Cad Bilateral CC and MLO view(s) were taken. Prior study comparison: August 12, 2020, bilateral MG 3d screening mammo w/cad. January 24, 2019, bilateral MG 3d screening mammo w/cad. March 09, 2016, bilateral MG 3d screening mammo w/cad. The breast tissue is heterogeneously dense. This may lower the sensitivity of mammography. Focal asymmetry with calcification right medial CC view. ASSESSMENT: Incomplete: need additional imaging evaluation, BI-RAD 0 RECOMMENDATION: Special view mammogram of the right breast. If lesion persists on supplemental views, image directed ultrasound is recommended. [facility] will attempt to contact patient to return for supplemental views and ultrasound if indicated.
== END | disposition home or self-care (01) ==
LOC: RADMAMWWP 13:14
PROVIDERS: ATTEND Internal Medicine
DX: Z12.31 Encounter for screening mammogram for malignant neoplasm of breast (principal); Z87.42 Personal history of other diseases of the female genital tract
CPT/HCPCS: 76830; 76856; 77063; 77067

== ENCOUNTER → 2021-08-19 | Outpatient (CLI) | payer MEDICAID ==
--- NOTE | 2021-08-19 10:00 | MM ---
Reason for exam: additional evaluation requested from abnormal screening. Last mammogram was performed less than 1 month ago. History: Patient is postmenopausal, has history of other cancer at age 44, and had first child at age 32. Benign excisional biopsy of the left breast. Took estrogen for 6 years. Took progesterone for 10 years. Took unspecified hormones for 2 years. Physical Findings: Nurse did not find any significant physical abnormalities on exam. MG 3D Work Up W/Cad RT CC with magnification and LM view(s) were taken of the right breast. Prior study comparison: August 14, 2021, bilateral MG 3d screening mammo w/cad. August 12, 2020, bilateral MG 3d screening mammo w/cad. Focal asymmetry This finding is changed when compared with previous exams. These results were verbally communicated with the patient and result sheet given to the patient on 08/19/21. ASSESSMENT: Probably benign, BI-RAD 3 RECOMMENDATION: Follow-up diagnostic mammogram of the right breast in 6 months.
== END | disposition home or self-care (01) ==
LOC: RADMAMWWP 08:57
PROVIDERS: ATTEND Internal Medicine
DX: N64.89 Other specified disorders of breast (principal); Z85.89 Personal history of malignant neoplasm of other organs and systems
CPT/HCPCS: 77061; 77065

== ENCOUNTER → 2022-03-19 | Outpatient (CLI) | payer MEDICAID ==
--- NOTE | 2022-03-19 13:35 | MM ---
Reason for Exam: Follow-up at short interval from prior study. Last screening mammogram was performed 7 month(s) ago. Patient History: Menarche at age 13. First Full-Term at age 32. Late child-bearing (after 30). Postmenopausal. Other cancer, age 44. Estrogen for 6 years from age 53 until age 59. Progesterone for 10 years from age 49 until age 59. Patient used Unspecified Hormone for 2 years. Benign Excisional Biopsy on the left side. Maternal grandmother had ovarian cancer at or over age 50. Risk Values: Kathryn 5 year model risk: 2.3%. NCI Lifetime model risk: 10.1%. Film Views: 3D and 2D Synthesized Right CC views were taken. 3D and 2D Synthesized Right MLO views were taken. Prior Study Comparison: 08/12/2020 Bilateral Screening Mammogram, [facility]. 08/14/2021 Bilateral Screening Mammogram, [facility]. 08/19/2021 Right Diagnostic Mammogram, [facility]. Tissue Density: Right: The breast tissue is heterogeneously dense. This may lower the sensitivity of mammography. Findings: Analyzed By CAD. No suspicious new mass or worrisome cluster of microcalcification. Overall Assessment: Benign, BI-RAD 2 Management: Screening Mammogram of both breasts in 5 months. A clinical breast exam by your physician is recommended on an annual basis and results should be correlated with mammographic findings. This exam should not preclude additional follow-up of suspicious palpable abnormalities. Results were given to the patient verbally at the time of exam. Electronically signed and approved by: Ted Harris M.D.
== END | disposition home or self-care (01) ==
LOC: RADMAMWWP 13:02
PROVIDERS: ATTEND Internal Medicine
DX: R92.8 Other abnormal and inconclusive findings on diagnostic imaging of breast (principal); Z78.0 Asymptomatic menopausal state; Z80.41 Family history of malignant neoplasm of ovary
CPT/HCPCS: 77061; 77065

== ENCOUNTER → 2022-09-28 | Outpatient (CLI) | payer MEDICAID ==
--- NOTE | 2022-11-03 01:30 | EM ---
EVENT MONITOR THIRTY-DAY EVENT MONITOR REPORT: All available recordings were reviewed. There is predominant sinus rhythm with isolated PVCs. No other significant arrhythmia was detected. MMODL / IJN: [id number] /
== END | disposition home or self-care (01) ==
LOC: RADECHMAIN 12:13
PROVIDERS: ATTEND Family Medicine
DX: I49.3 Ventricular premature depolarization (principal); R00.2 Palpitations
CPT/HCPCS: 93270

== ENCOUNTER → 2023-09-12 | Outpatient (CLI) | payer MEDICAID ==
--- NOTE | 2023-09-13 19:10 | MM ---
Reason for Exam: Screening (asymptomatic). Last screening mammogram was performed 12 month(s) ago. Patient History: Menarche at age 13. First Full-Term at age 32. Late child-bearing (after 30). Postmenopausal. Patient has history of breast feeding. Estrogen for 6 years from age 53 until age 59. Progesterone for 10 years from age 49 until age 59. Patient used Unspecified Hormone for 2 years. Benign Excisional Biopsy on the left side. Maternal grandmother had ovarian cancer, age 70. Risk Values: Kathryn 5 year model risk: 2.4%. NCI Lifetime model risk: 9.5%. Prior Study Comparison: 08/19/2021 Right Diagnostic Mammogram, [facility]. 03/19/2022 Right MG 3D diag mammo w/cad RT, [facility]. 08/25/2022 Bilateral MG 3D screening mammo w/cad, [facility]. Tissue Density: The breast tissue is heterogeneously dense. This may lower the sensitivity of mammography. Findings: Analyzed By CAD. Areas of bilateral asymmetric density remain unchanged. There is no suspicious group of microcalcifications or new suspicious mass in either breast. Overall Assessment: Benign, BI-RAD 2 Management: Screening Mammogram of both breasts in 1 year. . Patient should continue monthly self-breast exams. A clinical breast exam by your physician is recommended on an annual basis. This exam should not preclude additional follow-up of suspicious palpable abnormalities. Note on Kathryn scores and lifetime risk: 1. A Kathryn score greater than 3% is considered moderate risk. If this is the case, consider specialist referral to assess eligibility for a risk reducing agent. 2. If overall lifetime risk for the development of breast cancer is 20% or higher, the patient may qualify for future screening with alternating mammogram and breast MRI. Electronically signed and approved by: Hua Barker M.D. Radiologist
== END | disposition home or self-care (01) ==
LOC: RADMAMWWP 13:08
PROVIDERS: ATTEND Family Medicine
DX: Z12.31 Encounter for screening mammogram for malignant neoplasm of breast (principal); Z78.0 Asymptomatic menopausal state
CPT/HCPCS: 77063; 77067

== ENCOUNTER → 2024-09-17 | Outpatient (CLI) | payer MEDICARE ==
--- NOTE | 2024-09-18 17:34 | BD ---
EXAMINATION TYPE: Axial Bone Density DATE OF EXAM: 09/17/2024 CLINICAL HISTORY: 64 years old Female. ICD-10 CODE: Z78.0 Post karmen , Additional History: Height: 69.5 in Weight: 175 lbs FRAX RISK QUESTIONS: Family History (Parent hip fracture): yes mother History of Fracture in Adulthood: lt foot fx age 65 MEDICATIONS: Thyroid Medications: yes Which medication: personal financial planner thyroid How Lon years EXAM MEASUREMENTS: Bone mineral densitometry was performed using the [employer] System. Bone mineral density as measured about the Lumbar spine is: ----- L1-L4(G/cm2): 1.321 T Score Values are as follows: ----- L1: -0.4 ----- L2: -0.1 ----- L3: 2.3 ----- L4: 2.4 ----- L1-L4: 1.2 Z Score Values are as follows: ----- L1: 0.7 ----- L2: 1.0 ----- L3: 3.4 ----- L4: 3.5 ----- L1-L4: 2.3 Bone mineral density has: Increased 0.1% since study of: 08/12/2020 Bone mineral density about the R hip (g/cm2): 0.930 Bone mineral density about the L hip (g/cm2): 0.984 T Score values are as follows: -----R Neck: -1.4 -----L Neck: -1.1 -----R Total: -0.6 -----L Total: -0.2 Z Score values are as follows: -----R Neck: -0.2 -----L Neck: 0.0 -----R Total: 0.2 -----L Total: 0.7 Bone mineral density has: Decreased -2.1% since study of: 08/12/2020 FRAX%s: The graph provided illustrates a 26.9% chance for a major osteoporotic fx and a 1.6% chance f or the hips probability for fx in 10 years time. IMPRESSION: Osteopenia (T Score between -2.5 and -1). There is slightly increased risk of fracture and the patient may be considered for treatment. Re-Screen 2-5 years. NOTE: T-SCORE=SD OF THE YOUNG ADULT MEAN. [facility], , 09/18/2024 5:31 PM
--- NOTE | 2024-09-19 15:18 | MM ---
Reason for Exam: Screening (asymptomatic). Last screening mammogram was performed 12 month(s) ago. Patient History: Menarche at age 13. First Full-Term at age 32. Late child-bearing (after 30). Postmenopausal. Patient has history of breast feeding. Estrogen for 6 years from age 53 until age 59. Progesterone for 10 years from age 49 until age 59. Patient used Unspecified Hormone for 2 years. Benign Excisional Biopsy on the left side. Maternal grandmother had ovarian cancer, age 70. Risk Values: Kathryn 5 year model risk: 2.5%. NCI Lifetime model risk: 9.2%. Prior Study Comparison: 03/19/2022 Right MG 3D diag mammo w/cad RT, [facility]. 08/25/2022 Bilateral MG 3D screening mammo w/cad, [facility]. 09/12/2023 Bilateral MG 3D screening mammo w/cad, [facility]. Tissue Density: The breasts are heterogeneously dense, which may obscure small masses. Findings: Analyzed By CAD. Unchanged areas of asymmetric density. There is no suspicious group of microcalcifications or new suspicious mass in either breast. Overall Assessment: Benign, BI-RAD 2 Management: Screening Mammogram of both breasts in 1 year. . Patient should continue monthly self-breast exams. A clinical breast exam by your physician is recommended on an annual basis. This exam should not preclude additional follow-up of suspicious palpable abnormalities. Note on Kathryn scores and lifetime risk: 1. A Kathryn score greater than 3% is considered moderate risk. If this is the case, consider specialist referral to assess eligibility for a risk reducing agent. 2. If overall lifetime risk for the development of breast cancer is 20% or higher, the patient may qualify for future screening with alternating mammogram and breast MRI. [facility], , 09/19/2024 3:15 PM. Electronically signed and approved by: Hua Barker M.D. Radiologist
== END | disposition home or self-care (01) ==
LOC: RADMAMWWP 15:47
PROVIDERS: ATTEND Family Medicine
DX: Z12.31 Encounter for screening mammogram for malignant neoplasm of breast (principal); M85.80 Other specified disorders of bone density and structure, unspecified site; Z78.0 Asymptomatic menopausal state
CPT/HCPCS: 77063; 77067; 77080